=== PATIENT | female | born 1950 | race African-American/Black ===

== ENCOUNTER 2023-07-09 02:13 | Inpatient (IN) | payer MEDICARE, MEDICAID ==
[~2023-07-09] VITALS: Ht 172.7 cm; Wt 58.2 kg
[2023-07-09] VITALS (8 sets, daily range): BP systolic 115–121; BP diastolic 71–75; PULSE 63–87; RESP 14–18; TEMP 97.9–98.4; O2SAT 98–100
[2023-07-09 03:02] LABS: Basophils # (auto) 0 10 ^3/uL (0-0.2); Basophils % (auto) 0.9 % (0.0-2.0); Eosinophils # (auto) 0.1 10 ^3/uL (0-0.8); Hematocrit 37.2 % (36.0-46.0); Lymphocytes # (auto) 1.1 10 ^3/uL (0.4-5.4); Lymphocytes % (auto) 29.8 % (10.0-50.0); Mean Corpuscular Hemoglobin 28.8 pg (28.0-32.0); Mean Corpuscular Hgb Conc. 32.3 g/dL (32.0-36.0); Monocytes # (auto) 0.2 10 ^3/uL (0-1.3); Monocytes % (auto) 5.3 % (0.0-12.0); Neutrophils # (auto) 2.3 10 ^3/uL (1.6-8.6); Nucleated Red Blood Cells % 0.1 %; Red Blood Cells 4.18 10^6/uL (4.0-5.20); Red Cell Distribution Width 14.4 % (11.8-14.3); White Blood Cell 3.7 10^3/uL (4.4-10.8)
[2023-07-09 03:24] LABS: INR 1.06 (0.9-1.15); Partial Thromboplastin Time 30.7 SEC (24.5-34.5); Prothrombin Time 11.1 sec (9.3-11.8)
[2023-07-09 03:30] LABS: Alanine Aminotransferase 83 U/L (7-40); Albumin 3.9 g/dL (3.2-4.8); Alkaline Phosphatase 121 U/L (46-116); Anion Gap 7 (5-15); Aspartate Aminotransferase 116 U/L (13-40); BUN/Creatinine Ratio 12.6 (10.0-20.0); Bilirubin, Total 0.5 mg/dL (0.2-1.0); Blood Urea Nitrogen 16 mg/dL (9-23); Calcium 9.3 mg/dL (8.7-10.4); Carbon Dioxide 27 mmol/L (20-30); Chloride 108 mmol/L (98-107); Glucose 132 mg/dL (74-106); Potassium 3.6 mmol/L (3.5-5.1); Sodium 142 mmol/L (136-145); Total Protein 6.5 g/dL (5.7-8.2)
[2023-07-09 05:28] LABS: Urine Bacteria FEW /hpf (None Seen); Urine Blood 2+ /uL (Negative); Urine Clarity Clear (Clear); Urine Color Yellow (Yellow); Urine Hyaline Cast FEW /lpf (0 - 2); Urine Mucus FEW (None Seen); Urine Protein, UAD 1+ (Negative); Urine Specific Gravity 1.022 (1.001-1.035); Urine Urobilinogen Normal (Negative); Urine WBC 13 /hpf (0 - 5); Urine pH 5.5 (5.0-8.0)
[2023-07-09] MEDS ORDERED: FUROSEMIDE 40 MG/4 ML VIAL IV ONE (06:45)
[2023-07-09] MEDS ORDERED: cefTRIAXone 1GM/50ML D5W 50 ML IV ONE (08:45)
[2023-07-09] MEDS ORDERED: NITROGLYCERIN 0.4 MG SL TAB SL PRN (09:30)
[2023-07-09] MEDS ORDERED: MORPHINE SULFATE INJ 2 MG/ml SYRG IV PRN (09:30)
[2023-07-09] MEDS: ENOXAPARIN SOD 40 MG/0.4 ML SYRINGE SC SCH (10:44)
[2023-07-09 13:46] LABS: COVID19 ANTIGEN SOFIA FIA NEGATIVE (NEGATIVE)
[2023-07-09] MEDS ORDERED: CAR3125T PO (18:54)
[2023-07-09] MEDS ORDERED: METH-552 PO (18:54)
[2023-07-09] MEDS ORDERED: FURO1TAB33 PO (18:54)
[2023-07-09] MEDS ORDERED: MAGN400T40 OR (18:54)
[2023-07-09] MEDS: CARVEDILOL 3.125 MG TAB PO SCH (22:20)
[2023-07-09 22:36] LABS: Blood Alcohol < 3.0 mg/dL (<10); Triglycerides 40 mg/dL (< 150)
[2023-07-09 22:37] LABS: LDL Cholesterol 134 mg/dL (< 100)
[2023-07-09 22:38] LABS: Cholesterol 209 mg/dL (< 200); HDL Cholesterol 63 mg/dL (40-59)
[2023-07-10] VITALS (9 sets, daily range): BP systolic 107–126; BP diastolic 54–76; PULSE 58–76; RESP 16–19; TEMP 97.8; O2SAT 95–99
[2023-07-10 06:34] LABS: Basophils # (auto) 0.2 10 ^3/uL (0-0.2); Eosinophils # (auto) 0.1 10 ^3/uL (0-0.8); Eosinophils % (auto) 2.3 % (0.0-7.0); Hematocrit 37.7 % (36.0-46.0); Hemoglobin 12.2 g/dL (12.2-16.2); Lymphocytes # (auto) 1.6 10 ^3/uL (0.4-5.4); Lymphocytes % (auto) 41.8 % (10.0-50.0); Mean Corpuscular Hemoglobin 28.8 pg (28.0-32.0); Mean Corpuscular Hgb Conc. 32.3 g/dL (32.0-36.0); Monocytes # (auto) 0.3 10 ^3/uL (0-1.3); Monocytes % (auto) 8.1 % (0.0-12.0); Neutrophils # (auto) 1.7 10 ^3/uL (1.6-8.6); Neutrophils % (auto) 43.8 % (37.0-80.0); Red Blood Cells 4.23 10^6/uL (4.0-5.20); Red Cell Distribution Width 13.9 % (11.8-14.3); White Blood Cell 3.9 10^3/uL (4.4-10.8)
[2023-07-10 06:54] LABS: Alanine Aminotransferase 53 U/L (7-40); Albumin 3.7 g/dL (3.2-4.8); Alkaline Phosphatase 97 U/L (46-116); Anion Gap 7 (5-15); Aspartate Aminotransferase 41 U/L (13-40); BUN/Creatinine Ratio 7.8 (10.0-20.0); Blood Urea Nitrogen 10 mg/dL (9-23); Calcium 9.3 mg/dL (8.5-10.1); Carbon Dioxide 28 mmol/L (20-30); Chloride 109 mmol/L (98-107); Glucose 82 mg/dL (74-106); Potassium 3.7 mmol/L (3.5-5.1); Sodium 144 mmol/L (136-145)
[2023-07-10 06:55] LABS: Bilirubin, Total 0.7 mg/dL (0.2-1.0); Total Protein 6.3 g/dL (5.7-8.2)
[2023-07-10] MEDS: methIMAzole 5 MG TAB PO SCH (08:00)
[2023-07-10] MEDS: cefTRIAXone 1GM/50ML D5W 50 ML IV SCH (08:03)
[2023-07-10] MEDS: FUROSEMIDE 40 MG/4 ML VIAL IV SCH (09:41)
[2023-07-10] MEDS: CARVEDILOL 3.125 MG TAB PO SCH ×2 (09:42→23:18)
[2023-07-10] MEDS: ENOXAPARIN SOD 40 MG/0.4 ML SYRINGE SC SCH (09:43)
[2023-07-10] MEDS ORDERED: MAGNESIUM OXIDE 400 MG TAB PO SCH (10:00)
[2023-07-10] MEDS ORDERED: POTASSIUM CHL 20 Meq TABLET PO ONE (11:15)
[2023-07-10] MEDS ORDERED: MAGNESIUM OXIDE 400 MG TAB PO ONE (11:15)
[2023-07-11 04:41] VITALS: BP 111/64; PULSE 68; RESP 15; TEMP 98.6; O2SAT 98
[2023-07-11 07:00] VITALS: O2SAT 99
[2023-07-11 08:00] VITALS: PULSE 57; PULSE 77; RESP 18; O2SAT 98
[2023-07-11 08:36] VITALS: BP 113/98; PULSE 69; RESP 17; TEMP 98; O2SAT 98
[2023-07-11] MEDS: cefTRIAXone 1GM/50ML D5W 50 ML IV SCH (09:09)
[2023-07-11] MEDS: methIMAzole 5 MG TAB PO SCH (09:10)
[2023-07-11] MEDS: CARVEDILOL 3.125 MG TAB PO SCH (09:27)
[2023-07-11] MEDS: FUROSEMIDE 40 MG/4 ML VIAL IV SCH (09:28)
[2023-07-11] MEDS ORDERED: MAGNESIUM OXIDE 400 MG TAB PO SCH (10:00)
[2023-07-11] MEDS ORDERED: POTA-180 PO (11:59)
[2023-07-11] MEDS ORDERED: FURO1TAB31 PO (11:59)
[2023-07-11 12:51] VITALS: BP 114/75; PULSE 73; RESP 19; TEMP 98.5; O2SAT 100
[2023-07-11 15:21] VITALS: BP 114/75; PULSE 73; RESP 19; TEMP 98.5; O2SAT 100
== END 2023-07-11 16:26 | disposition home or self-care (01) | DRG 291 ==
LOC: ER 02:13 → TELE 09:28 → TELE-WESTW 16:57
PROVIDERS: ADMIT Nurse Practitioner Family; ATTEND Internal Medicine
PROC: 5A09357 Assistance with Respiratory Ventilation, Less than 24 Consecutive Hours, Continuous Positive Airway Pressure (ICD-10-PCS; principal; 2023-07-10)
DX: I13.0 Hypertensive heart and chronic kidney disease with heart failure and stage 1 through stage 4 chronic kidney disease, or unspecified chronic kidney disease (principal); I50.23 Acute on chronic systolic (congestive) heart failure; N17.9 Acute kidney failure, unspecified; J44.1 Chronic obstructive pulmonary disease with (acute) exacerbation; N39.0 Urinary tract infection, site not specified; J96.10 Chronic respiratory failure, unspecified whether with hypoxia or hypercapnia; I25.10 Atherosclerotic heart disease of native coronary artery without angina pectoris; E03.9 Hypothyroidism, unspecified; I34.0 Nonrheumatic mitral (valve) insufficiency; E78.5 Hyperlipidemia, unspecified; K76.1 Chronic passive congestion of liver; N18.30 Chronic kidney disease, stage 3 unspecified; Z87.442 Personal history of urinary calculi; Z87.891 Personal history of nicotine dependence; Z91.041 Radiographic dye allergy status; Z95.0 Presence of cardiac pacemaker
CPT/HCPCS: 36415; 71045; 76775; 80053; 80061; 80320; 81001; 83036; 83880; 84443; 84484; 85025; 85610; 85730; 87040; 87426; 93005; 93306; 94660; 96365; 96375; 99291; G0378; J0696